=== PATIENT | male | born 1965 | race Caucasian/White ===

== ENCOUNTER 2018-02-20 19:24 | Emergency (ER) | payer OTHER ==
--- NOTE | 2018-02-20 20:20 | UC ---
General HPI - HPI Summary HPI Summary: Patient states he's been having some cough and chest congestion for the past 3 days. Tonight he had a bout of coughing so hard that he passed out for "a second". He states that he was always aware of what was going on. He does admit to a history of asthma. With this cough he's had some wheezing possibly a little short of breath but no fever and no chest pain. - History of Current Complaint Chief Complaint: UCRespiratory Stated Complaint: COUGH/DIZZY,HX OF ASTHMA Time Seen by Provider: 02/20/18 20:12 Hx Obtained From: Patient, Family/Director Law Enforcement Onset/Duration: Gradual Onset Pain Intensity: 0 Aggravating: nothing Alleviating: nothing Associated Signs & Symptoms: Positive: Cough, Syncope - near [employer] from cough, SOB , Wheezing. Negative: Chest Pain, Fever - Allergy/Home Medications Allergies/Adverse Reactions: Allergies Allergy/AdvReac Type Severity Reaction Status Date / Time No Known Allergies Allergy Verified 02/20/18 19:49 PMH/Surg Hx/FS Hx/Imm Hx Respiratory History: Asthma - Surgical History Surgical History: None - Family History Known Family History: Positive: None - Social History Lives: With Family Alcohol Use: Daily Substance Use Type: None Smoking Status (MU): Never Smoked Tobacco - Immunization History Vaccination Up to Date: Yes Review of Systems Constitutional: Negative Skin: Negative Eyes: Negative ENT: Negative Respiratory: Shortness Of Breath, Cough Cardiovascular: Negative Gastrointestinal: Negative Genitourinary: Negative Motor: Negative Neurovascular: Negative Musculoskeletal: Negative Neurological: Negative Psychological: Negative Is Patient Immunocompromised?: No All Other Systems Reviewed And Are Negative: Yes Physical Exam Triage Information Reviewed: Yes Appearance: Well-Appearing Vital Signs: Initial Vital Signs Temp 98.3 F 02/20/18 19:43 Pulse 82 02/20/18 19:43 Resp 16 02/20/18 19:43 BP 146/75 02/20/18 19:43 Pulse Ox 96 02/20/18 19:43 Vital Signs Reviewed: Yes Eyes: Positive: Conjunctiva Clear ENT: Positive: Pharynx normal, TMs normal, Other. Negative: Nasal congestion, Nasal drainage Neck: Positive: Supple, Nontender, No Lymphadenopathy, Other: - No bruits or stridor Respiratory: Positive: No respiratory distress, Decreased breath sounds, Wheezing - occasional Cardiovascular: Positive: RRR, No Murmur, Pulses Normal Abdomen Description: Positive: Nontender, No Organomegaly, Soft. Negative: Bruit Bowel Sounds: Positive: Present Musculoskeletal: Positive: ROM Intact, No Edema Neurological: Positive: Alert Psychological: Positive: Normal Response To Family, Age Appropriate Behavior Skin Exam: Normal Diagnostics - Radiology No standard instances Xray Interpretation: No Acute Changes Radiology Interpretation Completed By: Radiologist - cxr - EKG Cardiac Rate: NL Cardiac Rhythm: Sinus: Normal Ectopy: None ST Segment: Normal Re-Evaluation - Re-Evaluation First Eval Re-Evaluation Time: 21:05 Change: Improved - improved aeration and wheezing resolved. pt notes less cough. Course/Dx - Course Course Of Treatment: exam is reassuring. EKG is unremarkable. must improved post albuterol and po prednisone. i think the near syncope was cough induced. will tx with albuterol, steroid and close f/u pcp. - Differential Dx - Multi-Symptom Provider Diagnoses: ASTHMA FLARE. POST TUSSIVE COUGH NEAR SYNCOPE. Discharge - Sign-Out/Discharge Documenting (check all that apply): Patient Departure - Discharge Plan Condition: Stable Disposition: HOME Prescriptions: predniSONE TAB* [Deltasone 20 MG TAB*] 40 mg PO DAILY 4 Days #8 tab Patient Education Materials: Asthma (DC), Near Syncope (ED) Referrals: Luis Stewart DO [Doctor of Osteopathy] - As Soon As Possible Additional Instructions: DIAGNOSIS: ASTHMA FLARE. POST TUSSIVE COUGH NEAR SYNCOPE. USE ALBUTEROL INHALER 2 PUFFS EVERY 6 HOURS. CALL THE OFFICE OF DR STEWART AND TAKE THE NEXT AVAILABLE APPOINTMENT WITH HIM OR ANY OTHER AVAILABLE PROVIDER IN THE PRACTICE TO ESTABLISH A PRIMARY CARE DOCTOR. GO TO ER FOR ANY WORSENING. - Billing Disposition and Condition Condition: STABLE Disposition: Home
[2018-02-20] MEDS ORDERED: Albuterol 2.5 MG/3 ML NEB.SOL* (0.083%) INH ONE (20:23)
[2018-02-20] MEDS ORDERED: predniSONE TAB* 20 MG PO ONE (20:24)
[2018-02-20] MEDS ORDERED: Albuterol HFA INHALER* 8 gm MDI INH ONE (21:16)
--- NOTE | 2018-02-20 21:18 | RAD ---
Indication: Cough. 2 views of the chest including dual energy PA views demonstrate no mediastinal shift. Heart is of normal size and configuration. Lung bradshaw are clear. IMPRESSION: No active cardiopulmonary disease is noted.
== END 2018-02-20 21:33 | disposition home or self-care (01) ==
LOC: UCCORT 19:24
DX: J45.909 Unspecified asthma, uncomplicated (principal); R05 Cough; R55 Syncope and collapse
CPT/HCPCS: 71046; 93005; 99203; A9270-GY; G0463; J7512